=== PATIENT | male | born 1960 | race Caucasian/White ===

== ENCOUNTER → 2017-10-17 | Outpatient (CLI) | payer BC ==
--- NOTE | 2017-10-17 11:06 | RAD ---
Indication: Recurrent smoker. Studies performed evaluate for lung cancer. Axial imaging through the chest was performed without intravenous contrast. No prior studies are available for comparison. No axillary lymphadenopathy is detected. No definite hilar or mediastinal lymphadenopathy is detected. No pericardial or pleural fluid is identified. There is dependent atelectasis in both lung bases. There are some emphysematous changes in both lungs. No nodule, mass or infiltrate is seen. There is some scarring or atelectasis right middle lobe and lingula. Impression: Mild emphysematous changes and bibasilar scarring. No parenchymal mass or nodule is identified. PQRS Compliance Statement: One or more of the following individualized dose reduction techniques were utilized for this examination: 1. Automated exposure control 2. Adjustment of the mA and/or kV according to patient size 3. Use of iterative reconstruction technique
== END | disposition home or self-care (01) ==
LOC: CT 10:12
PROVIDERS: ATTEND Family Medicine
DX: Z12.2 Encounter for screening for malignant neoplasm of respiratory organs (principal); J43.9 Emphysema, unspecified; J98.11 Atelectasis; F17.200 Nicotine dependence, unspecified, uncomplicated
CPT/HCPCS: 71250

== ENCOUNTER → 2019-05-14 | Outpatient (CLI) | payer BC ==
--- NOTE | 2019-05-14 17:07 | KCIC ---
2 view study of the second digit of the right hand Clinical indications: Foreign body. Swelling and redness. FINDINGS: There is a metallic linear foreign body within the palmar soft tissues of the second digit at the level of the distal aspect of the middle phalanx. It measures 9 mm in length. There is associated soft tissue swelling. 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 No acute fracture or dislocation or lytic process is evident. IMPRESSION: 9 mm in length linear metallic foreign body within the soft tissues of the second digit with associated soft tissue swelling. Electronically signed by: Aniket Diallo MD (05/14/2019 5:04 PM) [id number]
== END | disposition home or self-care (01) ==
LOC: KCIC 09:58
PROVIDERS: ATTEND Physician Assistant Medical
DX: S60.450A Superficial foreign body of right index finger, initial encounter (principal); M79.89 Other specified soft tissue disorders; X58.XXXA Exposure to other specified factors, initial encounter; Y93.89 Activity, other specified; Y92.89 Other specified places as the place of occurrence of the external cause; Y99.8 Other external cause status
CPT/HCPCS: 73140